=== PATIENT | female | born 1995 | race Caucasian/White ===

== ENCOUNTER 2017-01-15 13:57 | Inpatient (IN) | payer BC ==
[~2017-01-15] VITALS: Ht 162.6 cm; Wt 115.1 kg
[~2017-01-15 13:57] MED LIST: HYDR-3138 PO
[2017-01-15] MEDS ORDERED: DIAZEPAM 5 MG TABLET PO ONE (14:30)
[2017-01-15] MEDS ORDERED: HYDROmorphone 1 MG/ML, 1ML IM ONE ×3 (14:30→16:00)
[2017-01-15] MEDS ORDERED: KETOROLAC 30 MG/1 ML IM ONE (14:30)
[2017-01-15] MEDS ORDERED: DIAZEPAM 5 MG TABLET ONE (14:33)
[2017-01-15] MEDS ORDERED: HYDROmorphone 1 MG/ML, 1ML ONE ×2 (14:33→15:57)
[2017-01-15] MEDS ORDERED: KETOROLAC 30 MG/1 ML ONE (14:33)
[2017-01-15] MEDS ORDERED: SODIUM CHLORIDE FLUSH 10ML SYR IVF PRN (18:30)
[2017-01-15] MEDS ORDERED: ACETAMINOPHEN 325 MG TABLET PO PRN (19:00)
[2017-01-15] MEDS ORDERED: BISACODYL 10 MG SUPP PR PRN (19:00)
[2017-01-15] MEDS ORDERED: ONDANSETRON 2MG/ML, 2ML IVPush PRN (19:00)
[2017-01-15] MEDS ORDERED: POLYETHYLENE GLYCOL 17 GM PACKET PO PRN (19:00)
[2017-01-15 19:10] LABS: BLOOD UREA NITROGEN 9 mg/dL (7-18)
[2017-01-15] MEDS ORDERED: GADOBUTROL 10 MMOL/10 ML PFS ONE (19:19)
[2017-01-15] MEDS ORDERED: morphine SULFATE 10 MG/ML, 1ML ONE (19:53)
[2017-01-15] MEDS: morphine SULFATE 10 MG/ML, 1ML IVPush PRN (19:59)
[2017-01-15] MEDS ORDERED: ERGOCALCIFEROL 50,000 UNIT CAPSULE PO SCH (20:00)
[2017-01-15 20:56] VITALS: BP 154/94
[2017-01-15] MEDS ORDERED: METHOCARBAMOL 750 MG TABLET PO PRN (21:30)
[2017-01-15] MEDS: HEPARIN 5,000 UNITS/ML, 1ML SQ SCH (22:32)
[2017-01-16 01:51] VITALS: BP 154/94
[2017-01-16] MEDS: OXYcodone IR 5MG TABLET PO PRN ×2 (02:10→09:32)
[2017-01-16 04:09] VITALS: BP 128/78
[2017-01-16] MEDS: morphine SULFATE 10 MG/ML, 1ML IVPush PRN (06:19)
[2017-01-16] MEDS: HEPARIN 5,000 UNITS/ML, 1ML SQ SCH ×3 (06:20→21:40)
[2017-01-16 08:30] VITALS: BP 129/84
[2017-01-16] MEDS: SENNA/DOCUSATE TABLET PO SCH (09:33)
[2017-01-16] MEDS: HYDROmorphone 1 MG/ML, 1ML IV PRN ×3 (11:50→21:41)
[2017-01-16 13:13] VITALS: BP 127/82
[2017-01-16] MEDS ORDERED: LIDODERM 5% PATCH TD PRN (18:30)
[2017-01-16 20:00] VITALS: BP 143/83
[2017-01-17 01:57] VITALS: BP 129/77
[2017-01-17] MEDS: HEPARIN 5,000 UNITS/ML, 1ML SQ SCH ×3 (06:02→22:00)
[2017-01-17 07:22] VITALS: BP_SYST 136; BP_SYST 170; BP_DIAS 83; BP_DIAS 95
[2017-01-17] MEDS: HYDROmorphone 1 MG/ML, 1ML IV PRN ×2 (08:47→12:30)
[2017-01-17] MEDS: SENNA/DOCUSATE TABLET PO SCH (08:47)
[2017-01-17 12:28] VITALS: BP 148/75
[2017-01-17 19:45] VITALS: BP 136/82
[2017-01-17] MEDS: OXYcodone IR 5MG TABLET PO PRN (20:04)
[2017-01-18 01:48] VITALS: BP 144/86
[2017-01-18] MEDS: OXYcodone IR 5MG TABLET PO PRN ×2 (01:57→06:30)
[2017-01-18] MEDS: HEPARIN 5,000 UNITS/ML, 1ML SQ SCH ×2 (06:00→14:00)
[2017-01-18 06:26] VITALS: BP 143/80
[2017-01-18] MEDS: SENNA/DOCUSATE TABLET PO SCH (09:00)
[2017-01-18] MEDS ORDERED: ERGOCALCIFEROL 50,000 UNIT CAPSULE PO SCH (11:00)
[2017-01-18] MEDS: HYDROmorphone 1 MG/ML, 1ML IV PRN (13:05)
[2017-01-18 14:47] VITALS: BP 148/84
[2017-01-18] MEDS ORDERED: METH750T2 PO (15:28)
[2017-01-18] MEDS ORDERED: SENN1TAB7 PO (15:28)
[2017-01-18] MEDS ORDERED: OXYC-229 PO (15:28)
[2017-01-18] MEDS ORDERED: ERGO500017 PO (15:28)
== END 2017-01-18 18:37 | disposition home or self-care (01) | DRG 552 ==
LOC: ED 16:57 → EDIP 18:23 → 3NE 20:56
PROVIDERS: ADMIT Internal Medicine; ATTEND Internal Medicine
DX: M51.26 Other intervertebral disc displacement, lumbar region (principal); Z68.41 Body mass index [BMI] 40.0-44.9, adult; E66.9 Obesity, unspecified; M41.9 Scoliosis, unspecified; E55.9 Vitamin D deficiency, unspecified; E78.1 Pure hyperglyceridemia; M54.30 Sciatica, unspecified side; Z90.89 Acquired absence of other organs; Z90.49 Acquired absence of other specified parts of digestive tract; Z82.5 Family history of asthma and other chronic lower respiratory diseases; Z71.3 Dietary counseling and surveillance; G89.29 Other chronic pain
CPT/HCPCS: 36415; 72110; 72158; 80048; 80061; 81003; 82306; 82607; 82728; 83036; 83540; 83550; 83735; 84439; 84443; 84466; 84703; 85025; 85651; 96372; A9585; J1170; J1644; J1885; J2270